=== PATIENT | female | born 1960 | race Caucasian/White ===

== ENCOUNTER 2020-01-28 13:55 | Outpatient (CLI) | payer OTHER, SELFPAY ==
--- NOTE | ~2020-01-28 | XR_ITS ---
XR hand RT min 3V DATE: 01/28/2020 14:20 INDICATION: Right wrist and hand pain, thumb pain TECHNIQUE: 2 views COMPARISON: None FINDINGS: No fracture or dislocation, periosteal reaction or bone destruction. There are osteoarthritic changes involving primarily the distal interphalangeal joints. 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
--- NOTE | ~2020-01-28 | XR_ITS ---
XR wrist RT min 3V DATE: 01/28/2020 14:20 INDICATION: Right wrist and hand and thumb pain TECHNIQUE: 3 views COMPARISON: None FINDINGS: No fracture or dislocation, periosteal reaction or bone destruction. Joint spaces are prese rved. No chondral calcinosis or erosive changes. IMPRESSION: Negative Reviewed, dictated and finalized at location A. IMPRESSION: Negative
== END 2020-01-28 13:56 | disposition home or self-care (01) ==
LOC: CHSIMG 13:58
PROVIDERS: PCP Internal Medicine; Visit Provider Internal Medicine
DX: M25.531 Pain in right wrist (principal); E34.51 Complete androgen insensitivity syndrome
CPT/HCPCS: 73110; 73130

== ENCOUNTER 2022-11-16 01:34 | Day surgery (SDC) | payer OTHER, SELFPAY ==
[2022-11-02 14:10] VITALS: BMI 22.6
[2022-11-16 08:10] VITALS: BMI 22.7
[2022-11-16] MEDS: LACTATED RINGERS 1,000 ML 150 ML IV CONT (08:25)
[2022-11-16 08:27] VITALS: BP 150/74; PULSE 64; RESP 18; TEMP 36.5; O2SAT 100
--- NOTE | 2022-11-16 09:13 | WPDANESEPPF ---
Anes - Initial Pre Proc Eval Procedure: Operation Date: 11/16/22 09:15 Proposed Procedures p Colonoscopy - Riley Perez DO Date/Time: 11/16/22 09:13 Surgeon: Riley Perez DO Pre Op Diagnosis: positive cologuard Patient Data Age: 61 Gender: F Height: 1.68 m Weight: 64 kg Last Vital Signs Temp 97.7 F 11/16/22 08:27 Pulse 64 11/16/22 08:27 Resp 18 11/16/22 08:27 BP 150/74 H 11/16/22 08:27 Pulse Ox 100 11/16/22 08:27 O2 Del Method Room Air 11/16/22 08:27 Allergies Allergy/AdvReac Type Severity Reaction Status Date / Time No Known Allergies Allergy Verified 11/16/22 08:07 Home Medications Medication Instructions Recorded Confirmed Type sertraline 50 mg tablet 50 mg PO DAILY 11/02/22 11/16/22 History Patient hx anesthesia problems: none Family hx anesthesia problems: none Results Review: All pre-operative results and documents have been reviewed as part of the pre-operative evaluation. [facility] Social History Social History Smoking status: Never smoker Alcohol intake: current Alcohol use details: wine socially Substance use type: does not use Living arrangements: alone Spiritual care concerns: No Anes - Eval Final PreProcedure Day of Procedure 11/16/22 09:13 Patient weight: normal Heart: regular rate and rhythm Lungs: clear to auscultation Airway: Mallampati scale class II Neurological: alert and oriented Last oral intake: >/= 8 hours ASA classification: II Emergent: no Anesthetic plan: proceed Anesthesia type and monitoring: general GIVS and standard monitoring Results Review: All pre-operative results and documents have been reviewed as part of the pre-operative evaluation. Informed Consent: The patient's anesthetic plan and its attendant risks and benefits were discussed with the patient/family/POA. Questions were solicited and answers provided to the satisfaction of the patient/family/POA.
--- NOTE | 2022-11-16 09:17 | WPDANESEPPF ---
Anes - Initial Pre Proc Eval Procedure: Operation Date: 11/16/22 09:15 Proposed Procedures p Colonoscopy - Riley Perez DO Date/Time: 11/16/22 09:17 Surgeon: Riley Perez DO Pre Op Diagnosis: positive cologuard Patient Data Age: 61 Gender: F Height: 1.68 m Weight: 64 kg Last Vital Signs Temp 97.7 F 11/16/22 08:27 Pulse 64 11/16/22 08:27 Resp 18 11/16/22 08:27 BP 150/74 H 11/16/22 08:27 Pulse Ox 100 11/16/22 08:27 O2 Del Method Room Air 11/16/22 08:27 Allergies Allergy/AdvReac Type Severity Reaction Status Date / Time No Known Allergies Allergy Verified 11/16/22 08:07 Home Medications Medication Instructions Recorded Confirmed Type sertraline 50 mg tablet 50 mg PO DAILY 11/02/22 11/16/22 History Patient hx anesthesia problems: none Family hx anesthesia problems: none Results Review: All pre-operative results and documents have been reviewed as part of the pre-operative evaluation. [facility] Social History Social History Smoking status: Never smoker Alcohol intake: current Alcohol use details: wine socially Substance use type: does not use Living arrangements: alone Spiritual care concerns: No Anes - Eval Final PreProcedure Day of Procedure 11/16/22 09:17 Patient weight: normal Heart: regular rate and rhythm Lungs: clear to auscultation Airway: Mallampati scale class II Neurological: alert and oriented Last oral intake: >/= 8 hours ASA classification: II Emergent: no Anesthetic plan: proceed Anesthesia type and monitoring: general GIVS and standard monitoring Results Review: All pre-operative results and documents have been reviewed as part of the pre-operative evaluation. Informed Consent: The patient's anesthetic plan and its attendant risks and benefits were discussed with the patient/family/POA. Questions were solicited and answers provided to the satisfaction of the patient/family/POA.
--- NOTE | 2022-11-16 09:52 | PM.IMHP ---
H&P: HPI History of Present Illness Date/Time: 11/16/22 09:52 Chief Complaint: Positive Cologuard Narrative: This is a 61-year-old woman who presents for colonoscopy. She had a recent Cologuard test that was positive. She has never had a colonoscopy before. She denies any hematochezia or melena. She denies any family history of colon cancer. Review of Systems Review of Systems: All systems reviewed & are unremarkable except as noted in HPI and below Constitutional: Constitutional: Denies chills, Denies fever(s), Denies headache(s) and Denies weight loss Eyes: Eyes: Denies change in vision ENT: Denies dizziness, Denies headache(s), Denies neck mass and Denies throat swelling Cardiovascular: Cardiovascular: Denies chest pain, Denies lightheadedness and Denies dyspnea Respiratory: Respiratory: Denies cough, Denies dyspnea and Denies wheezing Gastrointestinal: Gastrointestinal: Denies abdominal pain, Denies change in bowel habits, Denies nausea and Denies vomiting Genitourinary: Genitourinary: Denies hematuria and Denies dysuria Musculoskeletal: Musculoskeletal: Reports as per HPI Integumentary/Breasts: Skin/Breast: Reports as per HPI Neurologic: Denies dizziness and Denies headache(s) Allergic/Immunologic: Allergic/Immunologic: Denies throat swelling and Denies wheezing PMFSH Social History Social History Smoking status: Never smoker Alcohol intake: current Alcohol use details: wine socially Substance use type: does not use Living arrangements: alone Spiritual care concerns: No Meds Home Medications and Allergies Home Medications Medication Instructions Recorded Confirmed Type sertraline 50 mg tablet 50 mg PO DAILY 11/02/22 11/16/22 History Allergies Allergy/AdvReac Type Severity Reaction Status Date / Time No Known Allergies Allergy Verified 11/16/22 08:07 Vital Signs Vital Signs - 24 hr 11/16/22 08:27 Temperature 36.5 C Pulse Rate 64 Respiratory Rate 18 Blood Pressure 150/74 H Pulse Oximetry 100 Oxygen Delivery Room Air Exam Const: General: no acute distress and alert Orientation/consciousness: patient oriented x3 HENMT: Head: normocephalic and atraumatic Ears: hearing grossly normal bilaterally Face/Nose/Sinus: Normal nares present Mouth: Yes Normal oral and palatal mucosa present Eyes: Periorbital: periorbital findings normal Sclera: sclerae normal EOM: EOMs intact bilaterally Neck: Neck: normal visual inspection, no lymphadenopathy and trachea midline Chest: Chest palpation & inspection: normal inspection of the chest Resp: Effort & Inspection: normal respiratory effort Auscultation: clear to auscultation bilaterally Cardio: Jugular venous distension: no JVD Rate: regular rate Rhythm: regular rhythm Heart sounds: S1 normal heart sound present and S2 normal heart sound present Peripheral pulses: Peripheral pulses 2+ throughout GI: Inspection: normal to inspection GI Palp: Yes Soft to palpation, No Tenderness to palpation present (GI), No Guarding due to palpation present (GI) and No Rebound tenderness present Percussion: Yes normal to percussion Auscultation: normal bowel sounds : General: Yes no CVA tenderness Back/Spine/Pelvis: Back: no CVA tenderness Neuro: General: patient oriented x3, no focal motor deficits and CN's II-XI intact bilaterally Cognition (Neuro): normal cognition Speech: normal speech Motor exam (neuro): 5/5 motor strength present throughout Extrem: General: capillary refill normal and no clubbing, cyanosis or edema Assessment and Plan Assessment and plan (1) Positive colorectal cancer screening using Cologuard test: Code(s): R19.5 - Other fecal abnormalities Status: Acute Assessment and Plan: I have recommended colonoscopy. I have discussed the procedure, risks, benefits, and alternatives with the patient. All questions answered.
[2022-11-16 10:22] VITALS: BP 102/60; PULSE 61; RESP 20; O2SAT 100
[2022-11-16 10:32] VITALS: BP 140/81; PULSE 61; RESP 21; O2SAT 100
[2022-11-16 10:42] VITALS: BP 137/81; PULSE 58; RESP 18; O2SAT 100
== END 2022-11-16 10:51 | disposition home or self-care (01) ==
PROVIDERS: PCP Internal Medicine; Visit Provider Surgery
PROC: 0DJD8ZZ Inspection of Lower Intestinal Tract, Via Natural or Artificial Opening Endoscopic (ICD-10-PCS; CPT 45378; principal; 2022-11-16 09:15)
DX: R19.5 Other fecal abnormalities (principal); D12.0 Benign neoplasm of cecum
CPT/HCPCS: 45385; 88305; J2704; J7120

== ENCOUNTER 2024-03-18 11:12 | Outpatient (CLI) | payer OTHER, SELFPAY ==
[2024-03-18 11:35] LABS: Basophils Absolute Auto 0.01 K/mm3 (0.00-0.10); Basophils Percent Auto 0.1 % (0.0-1.0); Eosinophils Absolute Auto 0.19 K/mm3 (0.02-0.50); Eosinophils Percent Auto 2.2 % (1.0-6.0); Hematocrit 42.4 % (35.0-49.0); Hemoglobin 14.1 g/dL (12.0-15.0); Immature Granulocyte Absolute 0.03 K/mm3 (0.00-0.00); Immature Granulocyte Percent A 0.3 % (0.0-0.0); Lymphocytes Absolute Auto 1.69 K/mm3 (1.10-4.50); Lymphocytes Percent Auto 19.5 % (18.0-42.0); Mean Corpuscular HGB Conc 33.3 g/dL (32-36); Mean Corpuscular Hemoglobin 31.6 pg (27.0-31.0); Mean Corpuscular Volume 95.1 fL (78.0-102.0); Mean Platelet Volume 8.8 fl (9.2-11.8); Monocytes Absolute Auto 0.69 K/mm3 (0.10-0.90); Neutrophils Absolute Auto 6.06 K/mm3 (1.70-7.20); Neutrophils Percent Auto 69.9 % (50.0-70.0); Platelet Count Result 331 K/mm3 (150-420); Red Blood Count 4.46 M/mm3 (4.20-5.40); Red Cell Distribution Width 11.8 % (11.6-14.4); White Blood Count 8.7 K/mm3 (4.8-10.8)
[2024-03-18 11:56] LABS: Anion Gap 6 mmol/L (4-12); Blood Urea Nitrogen 12 mg/dL (7-18); Calcium 9.3 mg/dL (8.5-10.1); Carbon Dioxide 32 mmol/L (21-32); Chloride 100 mmol/L (98-108); Estimated Glomerular Filt Rate > 60; Glucose 130 mg/dL (70-99); Osmolality Calculated 287 mOsm/kg (285-295); Potassium 3.9 mmol/L (3.5-5.1); Sodium 138 mmol/L (136-145)
== END 2024-03-18 11:13 | disposition home or self-care (01) ==
LOC: CHSLAB 11:15
PROVIDERS: PCP Internal Medicine; Visit Provider Nurse Practitioner Family
DX: L08.9 Local infection of the skin and subcutaneous tissue, unspecified (principal); T63.451A Toxic effect of venom of hornets, accidental (unintentional), initial encounter
CPT/HCPCS: 36415; 80048; 85025

== ENCOUNTER 2024-08-11 11:09 | Outpatient (CLI) | payer OTHER, SELFPAY ==
[2024-08-11 12:01] LABS: SARS-CoV-2 RNA PCR Positive (Negative)
--- OUTSIDE RECORDS SUMMARY | 2024-08-11 12:16 | XMS_ITS ---
Author Organization [facility] Address [address] [facility] [address] [place] [address] Care Team Providers Care Busgirl Name Role Phone Naheed Olivas Unavailable [phone] Migration, Provider Unavailable Unavailable REASON FOR VISIT TelEnc Social History Sex Assigned At : Social History Observation Description Sex Assigned At Female Encounters Encounter Location Date Provider Diagnosis [facility] [place] [id number] [facility] [address] [address] 11/20/2023 Provider Migration Plan Of Treatment No Information Progress Notes * JOSE FRANCISCO HILLDOB:1960 (63 yo F)Acc No.[id number]:11/20/2023 Patient:?JOSE FRANCISCO HILL :1960???Age:62 Y???Sex:Female Address:[address] [place] [address], [address] Subjective: * Chief Complaints: * ???TelEnc * 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 * Surgical History:? * Hospitalization/Major Diagno stic Procedure:? * Medications:? Objective: * Vitals:? * Physical Examination:? Assessment: Plan: * Treatment: * Procedure Codes:? * true * Date:? Generated for Cherry jang/Mikie/Floressmjerrica on:?08/11/2024 12:15 PM SUPPLY CATALOGUER
--- OUTSIDE RECORDS SUMMARY | 2024-08-11 12:16 | XMS_ITS | Patient Health Record ---
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 Name Role Phone Naheed Olivas Unavailable [phone] Olivier Milan Unavailable [phone] Migration, Provider Unavailable Unavailable Reason For Referral No Information Medications Medication SIG (Take, Route, Frequency, Duration) Notes Start Date End Date Status traZODone HCl 50 MG Oral 10/10/2023 Active buPROPion HCl ER (XL) 150 MG Oral 10/10/2023 Active valACYclovir HCl 500 MG Oral 10/10/2023 Active Sertraline HCl 50 MG TAKE 1 1/2 TABLETS BY MOUTH EVERY DAY for 90 Active Social History Sex Assigned At : Social History Observation Description Sex Assigned At Female Vital Signs Heart Rate 62 /min 10/10/2023 Height-cm 170.18 cm 10/10/2023 Blood pressure diastolic 78 mm Hg 10/10/2023 Weight-kg 66.22 kg 10/10/2023 Height 67.00 in 10/10/2023 Blood pressure systolic 147 mm Hg 10/10/2023 Weight 146.00 lbs 10/10/2023 BMI 22.9 kg/m2 10/10/2023 Encounters Encounter Location Date Provider Diagnosis [facility] [address] [place] [address] 08/14/2023 Naheed Olivas Attention-deficit hyperactivity disorder, combined type F90.2 ; Generalized anxiety disorder F41.1 and Major depressive disorder, recurrent severe without psychotic features F33.[address] [facility] [employer] [address] [place] [address] 09/12/2023 Naheed Deisy Generalized anxiety disorder F41.1 and Major depressive disorder, recurrent severe without psychotic features F33.[address] [facility], [facility] [address] [place] [address] 10/10/2023 Naheed Olivas Major depressive disorder, recurrent severe without psychotic features F33.2 and Generalized anxiety disorder F41.1 [facility] [address] [email or web address] [address] [place] [address] 08/24/2023 Provider Migration [facility], [facility] [address] [place] [address] 08/27/2023 Provider Migration [facility], [facility] [address] [address] 08/31/2023 Provider Migration [facility], [facility] [address] [address] 10/01/20[address] Provider Migration [facility], [facility] [address] [address] 10/10/2023 Provider Migration [facility], [facility] [address] [place] [address] 10/24/2023 Provider Migration [facility], [facility] [address] [address] 11/07/20[address] Provider Migration [facility], [facility] [address] [address] 11/20/20[address] Provider Migration [facility], [facility] [address] [address] 12/01/20[address] Provider Migration [facility], [facility] [address] [place] [address] 12/02/2023 Provider Migration Assessments Encounter Date Diagnosis (ICD Code) Assessment Notes Treatment Notes Treatment Clinical Notes Section Notes 10/10/2023 Major depressive disorder, recurrent severe without psychotic features (ICD-10 - F33.2) 10/10/2023 Generalized anxiety disorder (ICD-10 - F41.1) 09/12/2023 Major depressive disorder, recurrent severe without psychotic features (ICD-10 - F33.2) 09/12/2023 Generalized anxiety disorder (ICD-10 - F41.1) 08/14/2023 Major depressive disorder, recurrent severe without psychotic features (ICD-10 - F33.2) 08/14/2023 Generalized anxiety disorder (ICD-10 - F41.1) 08/14/2023 Attention-deficit hyperactivity disorder, combined type (ICD-10 - F90.2) Plan Of Treatment No Information Insurance Providers Payer Name Payer Address Payer Phone Subscriber Number Group Number Insured Name Patient Relationship to Insured Coverage Start Date Coverage End Date [employer] - [employer] [address] [place] [phone] [id number] JOSE FRANCISCO HILL Self - patient is the insured
--- OUTSIDE RECORDS SUMMARY | 2024-08-11 12:16 | XMS_ITS | Continuity of Care Document ---
Author Organization [facility] Address [address] [facility] [place] [address] Phone Care Team Providers Care Marble Setter Name Role Phone Tucker Evans MD Unavailable Unavailable Allergies, Adverse Reactions, Alerts Substance Reaction Status Criticality No Known Allergies Active No Inform ation Medications Medication Instructions Dosage Effective Dates (start - stop) Status Comments Zoloft 50 mg tablet take 1 tablet by ora l route every day 50 MG - Active Wellbutrin XL 300 mg 24 hr tablet, extended release take 1 tablet by oral route every morning 300 MG - Active Procedures Procedure Date PREV VISIT, EST, AGE 40-64 OFFICE/OUTPATIENT VISIT, EST OFFICE/OUTPATIENT VISIT, EST PREV VISIT, EST, AGE 40-64 OFFICE/OUTPATIENT VISIT, EST PREV VISIT, EST, AGE 40-64 OFFICE/OUTPATIENT VISIT, EST OFFICE/OUTPATIENT VISIT, EST OFFICE/OUTPATIENT VISIT, EST OFFICE/OUTPATIENT VISIT, EST PREV VISIT, NEW, AGE 40-64 Advance Directives Directive Yes / No Effective Date File Name No Information Encounters Encounter Description Practice Location Reason(s) For Visit Diagnoses Date Provider Providers Copied on Encounter PREV VISIT, EST, AGE 40-64 [facility], [address] [place] [address], [id number], [place] tel:[phone] [facility] Physical (chief complaint) Encounter for general adult medical exam w abnormal findingsAbnormal weight lossGeneralized Anxiety Disorder 8 Nathan Ceballos. [address], [place], [place], [id number] , [place]. [phone] Referring Provider: Adrian [address], [place], [place], [id number]. tel:[phone] OFFICE/OUTPA TIENT VISIT, EST [facility], [address], [place], [place], [id number], [place] tel:[phone] [facility] HLP (chief complaint)a nxiety1 (chief complaint)b ug bite (chief complaint) Generalized Anxiety DisorderHyperlipid emiaRashEncounter for screening for other viral diseases 7 Nathan Ceballos. [address], [address], [place], [place], [id number] , [place]. [phone] Referring Provider: Adrian [address], [place], [place], [id number]. tel:[phone] PREV VISIT, EST, AGE 40-64 [facility], [address], [place], [place], [id number], [place] tel:[phone] [facility] Physical (chief complaint) Encounter for general adult medical exam w abnormal findingsGeneralize d Anxiety DisorderOther hyperlipidemia 6 Nathan Ceballos. [address], [address], [place], [place], [id number] , [place]. [phone] Referring Provider: Adrian Monroe [address], [place], [place], [id number]. tel:[phone] PREV VISIT, EST, AGE 40-64 [facility], [address], [place], [place], [id number], [place] tel:[phone] [facility] PHysical (chief complaint) Encntr for general adult medical exam w/o abnormal findings 6 Nathan Ceballos. [address], [address], [place], [place], [id number] , [place]. [phone] Referring Provider: Adrian Monroe [address], [place], [place], [id number]. tel:[phone] OFFICE/OUTPA TIENT VISIT, [facility], [address] [place], [id number], [place] tel:[phone] [facility] anxiety1 (chief complaint)o steoporosis 1 (chief complaint)m ammogram1 (chief complaint) Generalized Anxiety DisorderEncounter for oth screening for malignant neoplasm of breastEncounter for screening for osteoporosis Jun- 5 Nathan Ceballos. [address], [place], [place], [id number] , [place]. [phone] Referring Provider: Tucker Evans [address] [facility] [place], [id number]. tel:[phone] OFFICE/OUTPA TIENT VISIT, [facility], [address] [place], [id number], [place] tel:[phone] [facility] HLP (chief complaint)d epression (chief complaint)v itamin D (chief complaint)I nsomnia (chief complaint) Depressive disorder, not elsewhere classifiedHyperlip idemiaVitamin deficiencyFatigue Sep-3 5 Nathan Ceballos. [address], [place], [place], [address] , [place]. [phone] Referring Provider: Adrian Monroe [facility] [address], [place], [place], [id number]. tel:[phone] OFFICE/OUTPA TIENT VISIT, [facility], [address] [place], [id number], [place] tel:[phone] [facility] depression (chief complaint)i nsomnia (chief complaint)H TN (chief complaint) FatigueDepressive disorder, not elsewhere classifiedInsomnia , unspecifiedBP - High blood pressure Sep-0 5 Nathan Ceballos. [address], [place], [place], [id number] , [place]. [phone] Referring Provider: Tucker Evans [address] [facility] [address], [place], [place], [id number]. tel:[phone] OFFICE/OUTPA TIENT VISIT, EST [facility], [address], [place], [place], [id number], tel:[phone] [facility] anxiety (chief complaint)s reening lab (chief complaint)f atigue (chief complaint) Chronic depressionFatigueI nsomnia 5 Nathan Ceballos. [address], [place], [place], [address] , [place]. tel:[phone] Referring Provider: Adrian [address], [place], [place], [id number]. tel:[phone] PREV VISIT, NEW, AGE 40-64 [facility], [address], [place], [place], [id number], tel:[phone] [facility] Physical (chief complaint) Routine Medical ExamRoutine Medical Exam 5 Nathan Ceballos. [address], [place], [place], [id number] , [place]. tel:[phone] Family History Family Member Type Diagnosis Age At Onset Father Problem (finding) cerebral hemorrhage Brother Problem (finding) Alive and well Mother Problem (finding) Diabetes mellitus Brother Problem (finding) Coronary artery disease Payers Payer name Insurance type Covered green party ID Authoriza tion(s) No Information Social History Type Description Quantity Date Captured Comments Alcohol Use Details Caffeine Use Details Unknown Tobacco Use Status Never smoked tobacco 2017 Smoking Status Never smoker Sex Female Vital Signs Date / Time: Height Weight BMI Pulse Rate Blood Pressure Temperature Respiratory Rate Body Surface Area Head Circumference BMI percentile Pulse Ox Inhaled Ox 10:20 AM 66.50 in 136.40 lbs 21.6 9 kg/m eter (2) 67 /min 134/84 mm[Hg] 98.4 F 16 /min Chief Complaint And Reason For Visit From encounter dated '03/28/2018 09:15'. Physical (chief complaint). Description: Pt need annual physical. pt is very noncompliant Pt has not done lab work, mammo, bone density or anything i ordered Pt has chronic anxiety and depression. Pttakes Wellbutrin and zoloft and her mood is stable. Pt denies any suicidal or homicidal thought .Ptdenies any crying spells. Pt doing ok currently. Pt lost 20 pounds since 2014. Pt denies any abdominal pain or any nausea, vomiting, diarrhea or loss of appetite. Pt has been trying to eat less and weight loss and she is happy with her current weight loss. Plan Of Treatment Date Type Action Status Referral Ordered: DXA BONE DENSITY, AXIAL ordered Referral Ordered: MAMMOGRAM, SCREENING ordered Referral Ordered: COLONOSCOPY AND BIOPSY ordered History Of Present Illness Encounter Date Complaint History Of Prese nt Illness Physical Pt need annual p hysical. pt is very noncompliant Pt has not done lab work, mammo, bone density or anything i ordered Pt has chronic anxiety and depression. Pt takes Wellbutrin and zoloft and her mood is stable. Pt denies any suicidal or homicidal thought .Pt denies any crying spells. Pt doing ok currently. Pt lost 20 pounds since 2014. Pt denies any abdominal pain or any nausea, vomiting, diarrhea or loss of appetite. Pt has been trying to eat less and weight loss and she is happy with her current weight loss. HLP Pt has mild HLP She has good amount of HDL also. Pt always is very healthy with diet and exercise anxiety1 Pt has chronic a nxiety and depression. Pt takes wellbutrin and zoloft and doing ok. Pt denies any suicidal or homicidal thought. Pt denies any crying spells bug bite Pt got bitten by mosquito on right forearm 4 days ago. Pt notices mild itching and some redness around the bite kevin since the bite without pain. Pt actually notices the redness is getting smaller. Pt denies any tick bite Pt denies any fever or any numbness. Pt deneis any headache or joint pain Physical Pt needs annual physical. Pt has chornic mild depression. Pt takes wellbutrin and zoloft Pt has been feeling ok in terms of her mood. Pt got a new job. Pt denies any suicial or homicidal thought. Pt denies any crying spells. pt denies any other complaints PHysical Pt needs annual physical. Pt has chronic anxiety and depression. Pt takes zoloft and wellbutrin and doing ok. Pt denies any suicidal or homicdial thought. Pt denies any crying spells. Pt denies any feeling of hopelessness. Pt did not do bone density and mammogram yet. Pt denies any other complaints anxiety1 Pt has chronic a nxiety and depression. Pt takes zoloft and wellbutrin and is stable. Pt denies any suicidal or homicidal thought Pt feels happy. Pt denies any crying spells osteoporosis1 Pt is postmeno. Pt denies any history of fracture. Pt denies any bone pain mammogram1 Last mammogram 1 08/29 which was normal per patietn. Pt denies any breast issue. depression Additional infor mation: Pt doing ok with zoloft and wellbutrin. Pt feels better mood. Pt denies crying spells. Pt feels more energy. Pt denie any suicidal thought. vitamin D Pt has low vitam in D Insomnia The patient pres ents for insomnia. Relevant history: a BMI of 24.48. The patient has the following risk factors for insomnia: use of alcohol. Additional information: Pt has not had the chance to try vistrail yet. Pt is sleeping well recently. HLP Pt has mild HLP Pt also has high HDL. Pt states that she eats very healthy depression The patient pres ents with anxious/fearful thoughts but denies fatigue. The patient denies any headache, urinary frequency, vomiting and weight gain. Additional information: Pt has chornic anxiety and depression. Pt feels slighlty better in terms of her mood. Pt feels very sad about her daughter levaing to college far away. Pt has frequent crying spells. Pt denies any suicidal thought or homicidal thought. insomnia The patient pres ents for insomnia. Relevant history: a BMI of 24.56. The patient has the following risk factors for insomnia: use of alcohol. The patient is experiencing depression. The patient denies headache upon awakening, heartburn, weight gain or wheezing. Additional information: Pt has insomnia. Pt has not tried vistaril yet. Pt has not had the need to use it yet. HTN Pt has mild HTN today Pt denies any chest pain or headache anxiety The patient pres ents with anxious/fearful thoughts but denies fatigue. The patient denies any vomiting and weight gain. Additional information: Pt has chronic anxiety and depression. Pt states that she takes zoloft daily but she still feels depressed. Pt denies any suicidal thought. Pt feels poor mood and lack of motivation. sreening lab Pt told me she d oes not want to do any lab work. fatigue The patient does not present with abdominal pain, cough, fatigue, fever, muscle weakness, rash, vomiting or weight loss. The patient denies any constipation, diarrhea, dyspnea, pruritus and weight gain. Additional information: Pt feels fatigue all the time. Pt denies any chest pain or SOB. Pt just feels tired. Pt has insomnia. Pt denies any trouble with breathing or any snoring. Instructions Date Instruction Additional Infor mation Diet and exercise Related to Enc ounter for general adult medical exam w abnormal findings Assessments Type Assessment Date assessment Encounter for general adult medi juanito exam w abnormal findings assessment Abnormal weight loss assessment Generalized Anxiety Disorder Mar Mental Status Date Cognitive Assessment Orientation - [place] ed to time, place, person, situation.
--- OUTSIDE RECORDS SUMMARY | 2024-08-11 12:16 | XMS_ITS ---
Author Organization [facility] [employer] [facility] Address [address] [place] [address] Care Team Providers Care Food And Beverage Checker Name Role Phone Naheed Olivas Unavailable [phone] Migration, Provider Unavailable Unavailable REASON FOR VISIT EMR-[facility] Social History Sex Assigned At : Social History Observation Description Sex Assigned At Female Encounters Encounter Location Date Provider Diagnosis [facility] [employer] [facility] [address] [facility] [address] [place] [address] 12/01/2023 Provider Migration Plan Of Treatment No Information Progress Notes * JOSE FRANCISCO HILLDOB:1960 (63 yo F)Acc No.[id number]:12/01/2023 Patient:?JOSE FRANCISCO HILL :1960???Age:62 Y???Sex:Female Address:[address] [place] [address], [address] Subjective: * Chief Complaints: * ???[facility] * 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 * Surgical History:? * Hospitalization/Major Diagno stic Procedure:? * Medications:? Objective: * Vitals:? * Physical Examination:? Assessment: Plan: * Treatment: * Procedure Codes:? * true * Date:? 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
--- OUTSIDE RECORDS SUMMARY | 2024-08-11 12:16 | XMS_ITS ---
Author Organization [facility] [employer] [facility] Address [address] [address] Care Team Providers Care Mathematical Statistician Name Role Phone Naheed Olivas Unavailable [phone] Migration, Provider Unavailable Unavailable REASON FOR VISIT [facility] Medications Medication SIG (Take, Route, Frequency, Duration) Notes Start Date End Date Status traZODone HCl 50 MG Oral 10/10/2023 Active buPROPion HCl ER (XL) 150 MG Oral 10/10/2023 Active valACYclovir HCl 500 MG Oral 10/10/2023 Active Sertraline HCl 50 MG Oral 10/10/2023 Active Social History Sex Assigned At : Social History Observation Description Sex Assigned At Female Encounters Encounter Location Date Provider Diagnosis [facility] [employer] [facility] [address] [facility] [address] [address] 12/02/2023 Provider Migration Plan Of Treatment No Information Progress Notes * JOSE FRANCISCO HILLDOB:1960 (63 yo F)Acc No.[id number]:12/02/2023 Patient:?JOSE FRANCISCO HILL :1960???Age:62 Y???Sex:Female Address:[address] [place], [address] Subjective: * Chief Complaints: * ???[facility] * 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 * Surgical History:? * Hospitalization/Major Diagno stic Procedure:? * Family History:?Brother: Brian gonzales .? * Social History:?Migrated Social History:?Migrated Social History: Alcohol Intake: Occasional 06/14/2023,Tobacco Years: Never smoker 06/14/2023. * Medications:?TakingbuPROPion HCl ER (XL) 150 MG Tablet Extended Release 24 Hour Oral traZODone HCl 50 MG Tablet Oral Sertraline HCl 50 MG Tablet Oral valACYclovir HCl 500 MG Tablet Oral Taking buPROPion HCl ER (XL) 150 MG Tablet Extended Release 24 Hour Oral Taking traZODone HCl 50 MG Tablet Oral Taking Sertraline HCl 50 MG Tablet Oral Taking valACYclovir HCl 500 MG Tablet Oral Objective: * Vitals:? * Physical Examination:? Assessment: Plan: * Treatment: * Procedure Codes:? * true * Date:? 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
== END 2024-08-11 11:10 | disposition home or self-care (01) ==
LOC: CHSLAB 11:11
PROVIDERS: PCP Internal Medicine; Visit Provider Internal Medicine
DX: U07.1 COVID-19 (principal); J06.9 Acute upper respiratory infection, unspecified
CPT/HCPCS: 87635